=== PATIENT | female | born 2000 | race Caucasian/White ===

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

== ENCOUNTER 2024-10-06 15:31 | Outpatient (CLI) | payer OTHER | END 2024-10-06 15:40 | disposition home or self-care (01) | LOC: RAD 15:31 | PROVIDERS: ATTEND Psychiatry & Neurology Clinical Neurophysiology | DX: M84.374A Stress fracture, right foot, initial encounter for fracture (principal) ==